=== PATIENT | female | born 1945 | race Caucasian/White ===

== ENCOUNTER 2017-01-27 07:04 | Day surgery (SDC) | payer MEDICARE ==
[~2017-01-27 07:04] MED LIST: FAMOTIDINE 20MG TABLET PO ONE; MECLIZINE 25 MG TABLET PO ONE; METOCLOPRAMIDE 10 MG TABLET PO ONE
[2017-01-27] MEDS ORDERED: LIDOCAINE 1% W/EPI 1:200,000 MPF 30ML SQ ONE (07:05)
[2017-01-27] MEDS ORDERED: DEXAMETHASONE PRESERVATIVE FREE 10MG/ML VIAL IV ONE (07:05)
[2017-01-27] MEDS ORDERED: MIDAZOLAM HCL 2MG/2ML VIAL IV ONE (07:05)
[2017-01-27] MEDS ORDERED: FENTANYL PF 100MCG/2ML VIAL IV ONE (07:05)
[2017-01-27] MEDS ORDERED: LIDOCAINE 2% MDV (20MG/ML) 20ML VIAL IV ONE (07:05)
[2017-01-27] MEDS ORDERED: BUPIVACAINE 0.75% W/EPI MPF 30ML VIAL IVP ONE (07:05)
[2017-01-27] MEDS ORDERED: BUPIVACAINE 0.25% MPF 30ML VIAL IVP ONE (07:05)
[2017-01-27] MEDS ORDERED: ONDANSETRON HCL IV 4 MG/2 ML VIAL IVP ONE (07:05)
[2017-01-27] MEDS ORDERED: PROPOFOL 10 MG/ML VIAL IV ONE (07:05)
--- NOTE | 2017-01-27 15:25 | Operative Note - [place] ---
DATE OF SURGERY: 01/27/17 PREOPERATIVE DIAGNOSIS: LUMBAR RADICULITIS, ICD-10 CODE M54.16 AND M54.17. POSTOPERATIVE DIAGNOSIS: LUMBAR RADICULITIS, ICD-10 CODE M54.16 AND M54.17. OPERATION: FLUOROSCOPICALLY-GUIDED BILATERAL LUMBAR EPIDURAL INJECTION L5-S1. SURGEON: TAMIKO AGOSTO D.O. ANESTHESIA: LOCAL SEDATION. ANESTHESIA PROVIDER: MARIA E REESE CRNA. INDICATION: This patient presents with pain, which starts in the back but then extends into the butt cheeks and back of the legs. Diagnostics show diffuse spondylosis with the primary disc at 5-1. PROCEDURE: Intravenous line, vital sign monitoring, IV sedation, prepped, draped, sterile technique. Consistent with the pattern of pain across L5-S1, the epidural interspace at L5-S1 identified and marked both left and right of the midline. Skin infiltrated then two separate 18-gauge Tuohy needles one left and one right of the midline. 5 mL of 0.125% Marcaine with Dexamethasone was injected, first left and then right. Both needles removed. Back cleaned. Topical antibiotic. Sterile dressing were applied. We will monitor and evaluate. An epidurogram was performed at each with appropriate flow characteristics noted. cc: Dr. Casey JOB NUMBER: [id number] MTDD
== END 2017-01-27 09:15 | disposition home or self-care (01) ==
LOC: SUR 07:04
PROVIDERS: ATTEND Pain Medicine Interventional Pain Medicine
DX: M54.17 Radiculopathy, lumbosacral region (principal); M54.16 Radiculopathy, lumbar region; E03.9 Hypothyroidism, unspecified
CPT/HCPCS: 62323; 01936; Q9967; J2405; J1100; J3010; J3490